=== PATIENT | male | born 1980 | race African-American/Black ===

== ENCOUNTER 2020-07-19 08:37 | Emergency (ER) | payer BC, MEDICAID, OTHER ==
[~2020-07-19] VITALS: Ht 185.4 cm; Wt 250.0 kg
[~2020-07-19 08:37] MED LIST: BENZ-16 PO; DEXL60CA3 PO; HYDR12.522 PO; IBUP-1984 PO; LISI-222 PO; LISI-232 PO; WEL75T PO
[2020-07-19 09:10] VITALS: BP 173/102
== END 2020-07-19 09:52 | disposition home or self-care (01) ==
LOC: ER 08:38
DX: M25.571 Pain in right ankle and joints of right foot (principal); I10 Essential (primary) hypertension; K21.9 Gastro-esophageal reflux disease without esophagitis; Z72.89 Other problems related to lifestyle; Z98.890 Other specified postprocedural states; Z56.0 Unemployment, unspecified; Z79.899 Other long term (current) drug therapy
CPT/HCPCS: 73610; 99283

== ENCOUNTER 2021-09-06 13:09 | Emergency (ER) | payer OTHER ==
[~2021-09-06] VITALS: Ht 185.4 cm; Wt 235.4 kg
[2021-09-06 13:26] VITALS: BP 129/87
[2021-09-06] MEDS ORDERED: DOXYCYCLINE 100MG CAPSULE PO ONE (16:05)
[2021-09-06] MEDS ORDERED: ketoconazole 2% cream 15gm TP ONE (16:05)
[2021-09-06] MEDS ORDERED: CefTRIAXone 500MG IM Kit w/LIDOcaine IM ONE (16:05)
[2021-09-06] MEDS ORDERED: DOXY-411 PO (16:56)
== END 2021-09-06 17:04 | disposition home or self-care (01) ==
LOC: ER 13:10
DX: B37.49 Other urogenital candidiasis (principal); I10 Essential (primary) hypertension; K21.9 Gastro-esophageal reflux disease without esophagitis; G47.30 Sleep apnea, unspecified; Z72.89 Other problems related to lifestyle; Z56.0 Unemployment, unspecified; Z79.899 Other long term (current) drug therapy; Z79.2 Long term (current) use of antibiotics
CPT/HCPCS: 36415; 87491; 87591; 96372; 99283; J0696